=== PATIENT | female | born 1995 | race Two or more races ===

== ENCOUNTER 2024-10-09 20:28 | Observation (INO) | payer MEDICAID, SELFPAY ==
[2024-10-09] VITALS (27 sets, daily range): BP systolic 121–122; BP diastolic 74–80; PULSE 88–101; RESP 20–98; TEMP 37.2; O2SAT 92–100; BMI 40.6
[2024-10-09 23:37] LABS: Basophils # (Auto) 0.1 Thou/mm3 (0.0-0.2); Basophils % (Auto) 0 % (0-2.5); Eosinophils # (Auto) 0.3 Thou/mm3 (0.0-0.5); Eosinophils % (Auto) 2 % (0-10); Hematocrit 34.2 % (36.0-46.0); Hemoglobin 11.2 g/dL (12.0-16.0); Immature Granulocytes % (Auto) 0 % (0-0); Immature Granulocytes Auto 0.05 Thou/mm3 (0.00-0.00); Lymphocytes % (Auto) 24 % (10-50); Mean Corpuscular HGB Conc 32.7 g/dl (31.0-37.0); Mean Corpuscular Hemoglobin 26.2 pg (25.0-35.0); Mean Corpuscular Volume 80 fL (80-100); Monocytes # (Auto) 0.9 Thou/mm3 (0.0-0.8); Monocytes % (Auto) 7 % (0-12); Neutrophils % (Auto) 66 % (37-80); Nucleated Red Blood Cell % 0 /100 WBC (0); Platelet Count 351 Thou/mm3 (140-440); RDW Standard Deviation 38.6 fL (36.4-46.3); Red Blood Count 4.28 Miln/mm3 (4.00-5.20); White Blood Count 12.2 Thou/mm3 (3.6-11.0)
[2024-10-10 00:10] LABS: Syphilis Nonreactive (Nonreactive)
[2024-10-10 00:19] LABS: Amphetamine/Metham Scrn,Ur OB Negative (Negative); Benzoylecgonine Screen, Ur OB Negative (Negative); Opiate Screen,Urine OB Negative (Negative); THC Screen,Urine OB Negative (Negative)
[2024-10-10 00:34] LABS: Collection Type, Urine Clean Catch
[2024-10-10 00:45] LABS: Bacteria,Urine 1+; Bilirubin,Urine Negative (Negative); Blood,Urine Trace (Negative); Clarity,Urine Clear (Clear/Hazy); Color,Urine Lt-Yellow (Lt Yel-Yel); Glucose, Urine Negative (Negative); Ketones,Urine Negative (Negative); Leukocyte Esterase,Urine Positive (Negative); Nitrite,Urine Negative (Negative); PH,Urine 6.5 (5.0-7.0); Protein,Urine Negative (Neg - Trace); RBC,Urine < 1 /hpf (0-3); Specific Gravity,Urine 1.008 (1.001-1.035); Squamous Epithelial Cell,Urine 1 /hpf (0-5); Urobilinogen,Urine Negative mg/dL (0.0-1.0); WBC,Urine 1 /hpf (0-5)
[2024-10-10 00:52] VITALS: BP 115/73; PULSE 89
[2024-10-10 01:23] VITALS: BP 0/0
--- NOTE | 2024-10-10 03:47 | ESHP_ITS ---
Documentation for date of: 10/09/24 OB Labor/Induct. HPI History of Present Illness : 2 Term pregnancies: 0 pregnancies: 0 Living children: 0 History of Abortions: Spontaneous and Elective: 1 History of sections: No History of : No Date of last menstrual period: 01/25/24 Gestational age based on last menstrual period: 37 History of present illness: 31 at 36+6 presents with LOF and contractions. Patient reports contractions and lower abdominal pain. No LOF, VB. normal movement. She was recently checked in the clinic for ROM which was negative. No UTI symptoms, no fevers. History of Present Adequate Care: Yes Labs Labs: Negative: Hepatitis B, HIV, Chlamydia, Gonorrhea and Group Beta Strep Review of Systems Review of Systems Narrative Review of Systems: Negative except noted above Past Medical History Surgical History SURGICAL: Negative Section Meds Home Medications and Allergies Home Medications ?Medication ?Instructions ?Recorded ?Confirmed ?Type prenat.vits,chris,[id number] 1 tab PO QDAY 04/28/18 10/09/24 History ( Vitamin tablet) albuterol sulfate 90 mcg/actuation 2 puff inhalation BID PRN coughing 10/09/24 10/09/24 History aerosol inhaler Allergies Allergy/AdvReac Type Severity Reaction Status Date / Time No Known Allergies Allergy Verified 10/09/24 23:23 OB Exam Physical Exam Vital signs: Temp Pulse Resp BP Pulse Ox 98.9 F 89 20 0/0 L 99 10/09/24 23:00 10/10/24 00:52 10/09/24 20:30 10/10/24 01:23 10/09/24 22:29 Narrative: SVE: 0.5cm/90%/high -> recheck 2cm BSUS cephalic DVP 4.6cm FHT: Reactive, no decelerations [place]: irritable OB Results Labs 10/09/24 23:15 Labs: Short CBC 10/09/24 Range/Units 23:15 WBC 12.2 H (3.6-11.0) Thou/mm3 Hgb 11.2 L (12.0-16.0) g/dL Hct 34.2 L (36.0-46.0) % Plt Count 351 (140-440) Thou/mm3 Urine 10/09/24 Range/Units 23:00 Urine Color Lt-Yellow (Lt Yel-Yel) Urine Clarity Clear (Clear/Hazy) Urine pH 6.5 (5.0-7.0) Ur Specific [place] 1.008 (1.001-1.035) Urine Protein Negative (Neg - Trace) Urine Glucose (UA) Negative (Negative) OB Assessment & Plan Assessment and Plan (1) labor: Status: Acute Additional Plan Additional Plan Comment: 31 at 36+6 presents with LOF and contractions, now in labor after making 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 labor: - Admit to labor - Expectant management - GBS negative FWB: continuous monitoring, Cat 1, cephalic on US PPH risk: med (obesity) Anticipate , will be 37+0 at midnight
[2024-10-10 04:30] VITALS: RESP 18; TEMP 36.6
[2024-10-10] MEDS: RINGERS LACTATED 1000 ML 1,000 ML 100 ML IV (07:57)
[2024-10-10 08:00] VITALS: BP 118/64; PULSE 92
--- NOTE | 2024-10-10 09:02 | ESDS_ITS ---
DS: Providers Provider Date of admission: 10/09/24 22:52 Primary care physician: Immanuel Lind MD Admitting Provider: Sherrie Guy MD Attending Provider on Admission: Marcelo Beal MD Attending Provider on DC: Francisca Celaya CNM Discharging Provider: Francisca Celaya CNM Anticipated date of discharge: 10/10/24 DS: Diagnosis Discharge Diagnosis (1) 37 weeks gestation of : Status: Acute Problem List Completed Was Problem List Reviewed/Reconciled?: Yes Summary/Hosp Course Brief History: 31 at 36+6 presents with LOF and contractions. Patient reports contractions and lower abdominal pain. No LOF, VB. normal movement. She was recently checked in the clinic for ROM which was negative. No UTI symptoms, no fevers. 10/10/2024: Pt is not in active labor, pt has made no cervical change, ok to be discharged home today, FU with Tova Gutierrez CNM Peripartum Data Procedures: Undelivered Status at Discharge Cognitive/behavioral status at discharge: Alert and oriented x3 Functional status at discharge: independent ambulation Overall status at discharge: Undelivered Time Spent with Patient Time attestation: Total time spent providing and/or coordinating discharge services: Time spent: Less than 30 minutes Exam Vital Signs Temp Pulse Resp BP Pulse Ox 98 F 92 18 118/64 99 10/10/24 04:30 10/10/24 08:00 10/10/24 04:30 10/10/24 08:00 10/09/24 22:29 Constitutional Constitutional: no acute distress Routine HEENT Exam Head: Present normocephalic and atraumatic Eye: Present EOMI, PERRL and normal accommodation ENT: Present mucous membranes moist Routine Neck Exam Neck: Present supple, full ROM and trachea midline Routine Respiratory Exam Respiratory: Present chest non-tender, lungs clear, normal breath sounds and no resp distress Routine Cardiovascular Exam Cardiovascular: Present RRR Routine Abdominal Exam Abdominal: Present soft and normoactive bowel sounds Routine Extremities Exam Extremities: Present full ROM Routine Back/Spine/Pelvis Exam Back/Spine: Present full ROM Routine Skin Exam Skin: Present intact, dry and warm Routine Neurological Exam Neurological: Present alert, oriented X3 and CN II-XII intact Routine Psychiatric Exam Psychiatric: Present normal affect and normal thought process Discharge Plan Plan Patient Disposition: HOME (Self Care) Patient condition on transfer: Stable Prescriptions/Referrals Prescriptions/Med Rec: Continued albuterol sulfate 90 mcg/actuation HFA aerosol inhaler 2 puff inhalation BID PRN (Reason: coughing) No Action Vitamin Tablet 1 tab PO QDAY Referrals: Immanuel Lind MD [Primary Care Provider] - Patient/Caregiver Discharge Instructions Meds to Beds: No Discharge Activity: activity as tolerated Other Discharge Activity Instructions:: Follow-up with Tova Gutierrez CNM in 2-3 days Education Materials: Damir Gonzales, Antepartum Discharge Print Language: Tamazight Stand Alone Forms: [facility] Award Info., Patient Portal Info Letter Discharge Order Discharge Orders: Discharge (Routine); Ordered 10/10/24 Ordered By: Francisca Celaya Planned Discharge Date 10/10/24
== END 2024-10-10 09:31 | disposition home or self-care (01) ==
PROVIDERS: Admitting Provider Obstetrics & Gynecology; PCP Family Medicine; Visit Provider Student in an Organized Health Care Education/Training Program
DX: O60.03 Preterm labor without delivery, third trimester (principal); O99.213 Obesity complicating pregnancy, third trimester; E66.9 Obesity, unspecified; Z3A.37 37 weeks gestation of pregnancy
CPT/HCPCS: 36415; 59025; 59899; 80307; 81001; 85025; 86780; 86850; 86900; 86901; G0378; J7120

== ENCOUNTER 2024-10-28 01:07 | Inpatient (IN) | payer MEDICAID, SELFPAY ==
[2024-10-28] VITALS (70 sets, daily range): BP systolic 107–139; BP diastolic 56–85; PULSE 71–123; RESP 16–98; TEMP 36.1–37; O2SAT 92–100; BMI 40.6
[2024-10-28] MEDS: RINGERS LACTATED 1000 ML 1,000 ML 125 ML IV ×2 (02:00→03:02)
[2024-10-28 02:15] LABS: Basophils % (Auto) 0 % (0-2.5); Eosinophils # (Auto) 0.2 Thou/mm3 (0.0-0.5); Eosinophils % (Auto) 2 % (0-10); Hematocrit 34.2 % (36.0-46.0); Hemoglobin 11.2 g/dL (12.0-16.0); Immature Granulocytes % (Auto) 0 % (0-0); Immature Granulocytes Auto 0.03 Thou/mm3 (0.00-0.00); Lymphocytes # (Auto) 3.7 Thou/mm3 (1.0-4.8); Lymphocytes % (Auto) 27 % (10-50); Mean Corpuscular HGB Conc 32.7 g/dl (31.0-37.0); Mean Corpuscular Hemoglobin 25.6 pg (25.0-35.0); Mean Corpuscular Volume 78 fL (80-100); Monocytes # (Auto) 0.9 Thou/mm3 (0.0-0.8); Monocytes % (Auto) 7 % (0-12); Neutrophils # (Auto) 8.6 Thou/mm3 (1.8-7.7); Neutrophils % (Auto) 64 % (37-80); Nucleated Red Blood Cell % 0 /100 WBC (0); Platelet Count 375 Thou/mm3 (140-440); RDW Standard Deviation 38.1 fL (36.4-46.3); Red Blood Count 4.38 Miln/mm3 (4.00-5.20); White Blood Count 13.5 Thou/mm3 (3.6-11.0)
[2024-10-28 02:48] LABS: Syphilis Nonreactive (Nonreactive)
[2024-10-28] MEDS: OXYTOCIN in NS 20 units 20 UNIT/1,000 ML BAG 125 UNIT IV (04:40)
[2024-10-28] MEDS: METHYLERGONOVINE INJ 0.2 MG/ML VIAL IM (04:43)
[2024-10-28] MEDS: LIDOCAINE HCL 1% 20 ML VIAL INFL (04:47)
[2024-10-28] MEDS: BENZO/LANO/ALOE (Dermoplast) 60 GM CAN 1 SPRAY TOP (04:56)
--- NOTE | 2024-10-28 05:22 | PD.LDHP ---
Documentation for date of: 10/28/24 OB Labor/Induct. HPI History of Present Illness : 3 Para: 1 Term pregnancies: 1 pregnancies: 0 Living children: 1 History of Abortions: Spontaneous and Elective: 1 History of Vaginal deliveries: 1 History of sections: No History of : No Date of last menstrual period: 01/25/24 AILIN: 10/31/24 Gestational Age (weeks): 39 Gestational Age (days): 4 Gestational age based on last menstrual period: 39 History of present illness: Patient presents with regular/painful ctx. No LOF, no vaginal bleeding. Feels normal movement. History of Present Dating criteria: LMP confirmed by 1st trimester US Adequate Care: Yes Ultrasounds: normal 1st trimester US and normal mid trimester US Narrative: G1: 2017 ETOP G2: 2018 term VAVD 8lb5oz M Labs Labs: Negative: Hepatitis B, HIV, Chlamydia, Gonorrhea and Group Beta Strep Review of Systems Review of Systems Narrative Review of Systems: Review of Systems Systems Reviewed: All systems reviewed, normal except as documented Constitutional Constitutional: Denies body ache(s), Denies chills, Denies fever(s) and Denies headache(s) ENT Ears, Nose, Mouth, and Throat: Denies headache(s) and Denies vertigo Cardiovascular Cardiovascular: Denies chest pain, Denies palpitations, Denies dyspnea and Denies syncope Respiratory Respiratory: Denies cough, Denies dyspnea Gastrointestinal Gastrointestinal: Denies nausea and Denies vomiting Neurologic Neurologic: Denies convulsions, Denies headache(s), Denies other visual disturbances, Denies syncope and Denies vertigo Past Medical History Surgical History SURGICAL: Negative Section OTHER SURGICAL HX: denies Social History SOCIAL: No ETOH, illicit drug use or tobacco Past Medical History Comments PMH COMMENT: Obesity, starting BMI 31 Asthma, mild intermittent Seasonal allergies Anxiety Menorrhagia Meds Home Medications and Allergies Home Medications ?Medication ?Instructions ?Recorded ?Confirmed ?Type prenat.vits,chris,iyt-wbla-[id number] 1 tab PO QDAY 04/28/18 10/09/24 History ( Vitamin tablet) albuterol sulfate 90 mcg/actuation 2 puff inhalation BID PRN coughing 10/09/24 10/09/24 History aerosol inhaler Allergies Allergy/AdvReac Type Severity Reaction Status Date / Time No Known Allergies Allergy Verified 10/09/24 23:23 OB Exam Physical Exam Vital signs: Temp Pulse Resp BP Pulse Ox 98.1 F 91 19 119/56 L 100 10/28/24 01:56 10/28/24 05:19 10/28/24 01:23 10/28/24 05:19 10/28/24 04:28 Narrative: General: well developed, well nourished, no acute distress, conversant Cardiac: normal heart rate Lungs: breathing without distress Abdomen: soft, gravid, non-tender, no rebound or guarding Extremities: no pain with palpation of calves Detailed Labor and Delivery Exam Dilation (cm): 5 Effacement (%): 80 Cervix position: anterior station: -2 Consistency: soft Presentation: Vertex Membranes: intact monitor accelerations: 15x15 monitor decelerations: None keno terminal operator variability: Moderate (11-25) Contraction frequency (min): q3-5min OB Results Labs 10/28/24 01:47 Labs: Short CBC 10/28/24 Range/Units 01:47 WBC 13.5 H (3.6-11.0) Thou/mm3 Hgb 11.2 L (12.0-16.0) g/dL Hct 34.2 L (36.0-46.0) % Plt Count 375 (140-440) Thou/mm3 OB Assessment & Plan Assessment and Plan (1) Active labor at term: Status: Acute Assessment and plan: Patient is a 29yo with SIUP at 39w4d presenting in active labor. Regular/painful contractions, SCE: 5/80/-2. Vitals wnl, benign exam. Reassuring assessment. PMhx/ complicated by: Starting BMI 31 (normal glucola), mild intermittent asthma, hx of VAVD for 8lb5oz infant in 2018 Plan: -Admit to L&D -Establish IV, routine labs -CEFM -Clear liquid diet -Grain Cleaner And Transfer Operator/consent re: -GBS status: negative -Anticipate -Safe to proceed (2) Obesity compl pregn//puerperp: Status: Acute
--- NOTE | 2024-10-28 05:26 | PD.LDDELS ---
Data ([facility]) Data Hx Section: No : 2 Para: 1 Term: 1 : 0 Livin : 0 Delivery Data ([facility]) Labor Data ROM Date: 10/28/24 ROM Time: 04:19 Rupture Type: AROM Amniotic Fluid: Clear Delivery Data Labor Onset Stage 1 Date: 10/28/24 Labor Onset Stage 1 Time: 01:10 Labor Onset Stage 2 Date: 10/28/24 Labor Onset Stage 2 Time: 04:25 Delivery Date: 10/28/24 Delivery Time: 04:32 Placenta Delivery Date: 10/28/24 Placenta Delivery Time: 04:40 Delivered by: Aylin Melo Delivery nurse: Belle Juárez Other staff at delivery: 2nd Nurse Other staff at delivery: Faith Almazan Delivery Method Delivery: Vaginal Delivery Type: Spontaneous Anesthesia Type Primary Anesthesia: Local EBL Estimated blood loss (ml): 300 Umbilical Cord Umbilical Vessels: 3 Additional Procedures Vivian is a 29yo [id number] s/p uncomplicated at term after presenting in active labor, delivering at 0432 on 10/28/2024. On presentation, SCE was 5cm. She progressed without augmentation to 9cm at which point AROM (scant fluid) was performed. Soon after she was C/C/0 at which point she began pushing. She was not able to receive an epidural (attempted twice but unsuccessful per report). With good maternal pushing efforts, 's head delivered OA and restituted SHANNAN. Left anterior shoulder delivered followed by posterior shoulder and corpus. Infant had spontaneous cry and was vigorous. Apgars 8/9. Terminal meconium noted. placed on maternal abdomen where nose/mouth were suctioned and infant dried/stimulated. After approximately 1 minute, cord was clamped x2 and cut by FOB. Cord blood collected for typing. With fundal massage and cord traction, placenta delivered spontaneously and intact with 3 vessel centrally inserted cord. Bimanual massage performed and IV pitocin given per protocol with fundus then firm at u-2cm. Continued trickle of blood noted, so sweep within the uterus performed which was productive of small piece of trailing membranes and modest amount of clot. Once this was removed, bleeding stopped. 0.2mg IM methergine given for ppx given large size. Inspection of perineum and vagina revealed a small left labial/elvis-clitoral laceration and a 2nd degree midline perineal laceration. These were both repaired in routine fashion with 4-0 vicryl and 3-0 vicryl, respectively, with total reapproximation and hemostasis. Fundus remained firm with normal lochia. All counts correct x2. Mom and were doing well when I left the room. Aylin Melo MD Complications Complications: none [facility] ([facility]) [facility] Gender: Male Infant Weight Grams: 3960 1 Minute Total: 8 5 Minute Total: 9
[2024-10-28] MEDS: DOCUSATE SOD 100 MG CAPSULE PO ×2 (09:09→20:27)
[2024-10-28] MEDS: IBUPROFEN TAB 400 MG TABLET 800 MG PO (12:11)
[2024-10-29 03:43] VITALS: BP 109/70; PULSE 76; RESP 16; TEMP 36.5; O2SAT 97
[2024-10-29] MEDS: IBUPROFEN TAB 400 MG TABLET 800 MG PO (04:15)
[2024-10-29 06:26] LABS: Basophils # (Auto) 0.1 Thou/mm3 (0.0-0.2); Basophils % (Auto) 0 % (0-2.5); Eosinophils # (Auto) 0.2 Thou/mm3 (0.0-0.5); Eosinophils % (Auto) 1 % (0-10); Hematocrit 28.5 % (36.0-46.0); Hemoglobin 9.3 g/dL (12.0-16.0); Immature Granulocytes % (Auto) 0 % (0-0); Immature Granulocytes Auto 0.05 Thou/mm3 (0.00-0.00); Lymphocytes # (Auto) 3.9 Thou/mm3 (1.0-4.8); Lymphocytes % (Auto) 27 % (10-50); Mean Corpuscular HGB Conc 32.6 g/dl (31.0-37.0); Mean Corpuscular Hemoglobin 25.8 pg (25.0-35.0); Mean Corpuscular Volume 79 fL (80-100); Monocytes # (Auto) 0.9 Thou/mm3 (0.0-0.8); Monocytes % (Auto) 6 % (0-12); Neutrophils # (Auto) 9.2 Thou/mm3 (1.8-7.7); Neutrophils % (Auto) 65 % (37-80); Nucleated Red Blood Cell % 0 /100 WBC (0); Platelet Count 294 Thou/mm3 (140-440); Red Blood Count 3.61 Miln/mm3 (4.00-5.20); White Blood Count 14.3 Thou/mm3 (3.6-11.0)
[2024-10-29 08:02] VITALS: BP 104/64; PULSE 73; RESP 16; TEMP 36.6; O2SAT 97
[2024-10-29] MEDS: DOCUSATE SOD 100 MG CAPSULE PO (08:18)
--- NOTE | 2024-10-29 09:29 | ESDS_ITS ---
DS: Providers Provider Date of admission: 10/28/24 01:45 Primary care physician: Physician No Primary/Family Admitting Provider: Aylin Melo MD Attending Provider on Admission: Aylin Melo MD Consults: 10/28/24 05:20 Referral Routine Comment: Attending Provider on DC: Aylin Melo MD Discharging Provider: Aylin Melo MD DS: Diagnosis Discharge Diagnosis (1) Active labor at term: Status: Acute (2) Obesity compl pregn//puerperp: Status: Acute (3) Anemia, : Status: Acute Problem List Completed Was Problem List Reviewed/Reconciled?: Yes Summary/Hosp Course Brief History: Patient presents with regular/painful ctx. No LOF, no vaginal bleeding. Feels normal movement. She is now day 1 s/p uncomplicated . She has had an uncomplicated course, meeting all milestones and feels ready for discharge home. She is ambulating without lightheadedness, tolerating regular diet no n/v, spontaneously voiding without issue. She has no chest pain or shortness of breath. No fevers or chills. Minimal, appropriate discomfort. Vitals normal, benign exam. Hemodynamically stable with no evidence of infection. PP Hgb 9.3. Iron sent to pharmacy and discussed to eat iron rich food as well. Status at Discharge Functional status at discharge: independent ambulation Overall status at discharge: patient is back to baseline Time Spent with Patient Time attestation: Total time spent providing and/or coordinating discharge services: Exam Vital Signs Temp Pulse Resp BP Pulse Ox O2 Del Method 98 F 73 16 104/64 97 Room Air 10/29/24 08:02 10/29/24 08:02 10/29/24 08:02 10/29/24 08:02 10/29/24 08:02 10/29/24 08:02 Narrative Exam General: well developed, well nourished, no acute distress, conversant Cardiac: normal heart rate Lungs: breathing without distress Abdomen: soft, post-gravid, non-tender, no rebound or guarding, Fundus firm at u-3cm. Extremities: no pain with palpation of calves, trace edema of BLE Discharge Plan Plan Patient Disposition: HOME (Self Care) Patient condition on transfer: Stable Prescriptions/Referrals Prescriptions/Med Rec: New ibuprofen 800 mg tablet 800 mg PO Q8H PRN (Reason: See Comments) 10 Days Qty: 30 0RF docusate sodium 100 mg Capsule 100 mg PO BID 30 Days Qty: 60 0RF ferrous sulfate 325 mg (65 mg iron) tablet 325 mg PO QDAY Qty: 30 0RF Continued Vitamin Tablet 1 tab PO QDAY albuterol sulfate 90 mcg/actuation HFA aerosol inhaler 2 puff inhalation BID PRN (Reason: coughing) Referrals: No Primary/Family,Physician [Primary Care Provider] - Patient/Caregiver Discharge Instructions Discharge Activity: activity as tolerated Other Discharge Activity Instructions:: vaginal rest and no heavy lifting gr eater than 10 pounds for 6 weeks Other Discharge Diet Instructions: regular Education Materials: Anemia, After a Vaginal Print Language: Tristanian Activity Restrictions/Additional Instructions: Call clinic to schedule 4 week visit Stand Alone Forms: Nuha Molina Info., Patient Portal Info Letter Discharge Order Discharge Orders: Discharge (Routine); Ordered 10/29/24 Ordered By: Aylin Melo Planned Discharge Date 10/29/24
== END 2024-10-29 12:03 | disposition home or self-care (01) | DRG 560 ==
LOC: S4SX 06:37 → S4NX 07:39
PROVIDERS: Admitting Provider Obstetrics & Gynecology; Visit Provider Obstetrics & Gynecology
DX: O77.0 Labor and delivery complicated by meconium in amniotic fluid (principal); O70.1 Second degree perineal laceration during delivery; Z37.0 Single live birth; O99.214 Obesity complicating childbirth; E66.9 Obesity, unspecified; Z3A.39 39 weeks gestation of pregnancy; O90.81 Anemia of the puerperium
CPT/HCPCS: 36415; 85025; 86780; 86850; 86900; 86901; J2210; J2590; J2795; J3010; J3490; J7120; A9270